=== PATIENT | male | born 1990 | race African-American/Black ===

== ENCOUNTER 2016-11-07 20:40 | Inpatient (IN) ==
[2016-11-07] MEDS ORDERED: MORPHINE 2 MG/1 ML SYRINGE IV STA (22:09)
[2016-11-07] MEDS ORDERED: ONDANSETRON 4 MG/2 ML VIAL IV STA (22:09)
[2016-11-07] MEDS ORDERED: SODIUM CHLORIDE 0.9% 1,000 ML IV STA (22:09)
[2016-11-07] MEDS ORDERED: IBUPROFEN 800 MG TABLET PO STA (22:15)
--- NOTE | 2016-11-07 22:15 | Emergency Department Note ---
Arrival - Arrival Chief Complaint: Upper Respiratory Stated Complaint: sob,fever,cold,n/v ED Nursing Triage Note: c/o GREGORIO, fever, and vomitting and unable to hold anything down with some SOB. no resp distress noted in triage. patient took tylenol at 1900 but threw in back up Mode of Arrival: Wheelchair Time Seen by Provider: 11/07/16 22:09 - History of Present Illness HPI Narrative: The patient presents complaining of abdominal pain, fever, nausea, and vomiting which started yesterday. His nausea vomiting and fever started that he began to have abdominal pain which radiates through to his back. Currently he states the pain is most severe in his back lower and his lumbar region. He denies any diarrhea. He has had no hematemesis or blood in his urine. Family states they tried to give him Tylenol at home but he threw it back up. Allergies/Adverse Reactions: Allergies Allergy/AdvReac Type Severity Reaction Status Date / Time No Known Allergies Allergy Unverified 11/07/16 20:48 Home Medications: Home Medications Medication Instructions Recorded Confirmed Type No Known Home Medications [No 11/07/16 11/07/16 History Known Home Medications] Review of System - Review of System 12 point system: reviewed and no additional remarkable complaints except as stated Medical,Surgical,& Family Hx - Medical History Neurology: No history of: Neurologocal Cancer - Social History Smoking Status: Current every day smoker Frequency of Alcohol Use: Frequently Type of Drug Use: Marijuana Exam Physical Examination: General: Patient is well-developed and well-nourished with mild distress noted. Is currently completely covered in a blanket and shivering. HEENT: The extraocular muscles are intact. Oropharynx is moist. There is no erythema or exudate. The tympanic membranes are shiny bilaterally. Neck: There is no adenopathy. Full range of motion is noted without pain. The trachea is midline. No JVD is present. Lungs: There is normal excursion of the chest with the lungs sounding clear bilaterally. No subcostal retractions are present. There is no point tenderness present. Heart: The heart has a regular rate and rhythm with no gallops or murmurs. Abdomen: The abdomen is tender diffusely with guarding but no definite rebound. Bowel sounds are present.. Back: The back demonstrates a normal appearance with no evidence of trauma. Genitourinary: Not examined. Extremities: The extremities demonstrate no clubbing, cyanosis, or edema. The visualized range of motion is normal. They appear atraumatic. Neuro: Cranial nerves II through XII are checked and intact. There is no focal motor or sensory deficit seen in the extremities. Skin: Skin is warm and dry with no evidence of rash. Vital Signs: Vital Signs Temperature 101.5 F H 11/07/16 22:49 Pulse Rate 93 H 11/07/16 23:15 Respiratory Rate 20 11/07/16 23:15 Blood Pressure 122/70 11/07/16 23:15 O2 Sat by Pulse Oximetry 94 L 11/07/16 23:15 Course - Consultations Consultation #1: Dr. Adal Prince will evaluate and admit the patient. Time: 23:38 Results - Labs CBC & BMP: 11/07/16 22:31 11/07/16 22:31 Lab Results: I have reviewed the patients labs - Diagnostic Findings Procedure: CT Abdomen and Pelvis: image reviewed by me (Appendix normal. Left lower lobe pneumonia.) Disposition Clinical Impression: Left lower lobe pneumonia, Acute nausea vomiting, Fever Case discussed with: patient, patient's family Disposition: Still a Patient Condition: Stable Time of Disposition: 23:39
[2016-11-07] MEDS ORDERED: ONDANSETRON 4 MG/2 ML VIAL ONE (22:26)
[2016-11-07] MEDS ORDERED: IBUPROFEN 800 MG TABLET ONE (22:26)
[2016-11-07] MEDS ORDERED: MORPHINE 2 MG/1 ML SYRINGE ONE (22:26)
[2016-11-07 22:53] LABS: Basophils % 0.2 % (0.0-0.8); Eosinophils % 0.1 % (0.00-10.9); Hematocrit 34.3 VOL% (42.0-52.0); Hemoglobin 12.4 GM/DL (14.0-18.0); Immature Granulocytes % 0.9 %; Immature Granulocytes Absolute 0.16 #; Lymphocytes # 1.2 10*3/uL (1.4-4.0); Lymphocytes % 6.5 % (21.2-54.2); Mean Corpuscular HGB Conc 36.2 GM/DL (32-36); Mean Corpuscular Hemoglobin 32 PG (27-34); Mean Corpuscular Volume 89.3 FL (87-102); Mean Platelet Volume 10.6 FL (9.6-12.0); Monocytes # 0.4 10*3/uL (0.11-0.8); Monocytes % 2.1 % (1.7-12.7); Neutrophils % 90.2 % (38.7-73.9); Platelet Count 205 T/CUMM (130-400); Red Blood Count 3.84 MC/CUMM (3.8-5.5); Red Cell Distribution Width 12.8 % (9.3-17.3); White Blood Count 17.7 T/CUMM (4-12)
[2016-11-07 23:00] LABS: Apearance,Urine Slightly Hazy (Clear); Bacteria,Urine Few /HPF (Few); Bilirubin,Urine Negative (Negative); Blood, Urine Negative (Negative); Glucose,Urine (UA) Negative (Negative); Ketones,Urine 80 mg/dL (Negative); Mucus,Urine Occasional /LPF (Occasional); Nitrite,Urine Negative (Negative); Protein,Urine 30 MG/DL; RBC,Urine 4 /HPF (0-4); Urine Color Yellow (Yellow); Urine Specific Gravity 1.028 (1.001-1.035); Urine Urobilinogen < 2.0 EU/DL (0.2-1.0); WBC,Urine 2 /HPF (0-6)
[2016-11-07 23:07] LABS: Albumin 3.2 G/DL (3.4-5.0); Bilirubin,Total 1.6 MG/DL (0.2-1.0); Calcium 8.4 MG/DL (8.5-10.1); Magnesium 1.5 MG/DL (1.8-2.4); Potassium 3.9 MMOL/L (3.5-5.1); Total Protein 6.5 G/DL (6.4-8.3)
[2016-11-07 23:12] LABS: Lactic Acid 2.5 MMOL/L (0.4-2.0)
[2016-11-07] MEDS ORDERED: MAGNESIUM SULF RIDER 2 GM in PREMIX 1 EACH IV STA (23:20)
[2016-11-07] MEDS ORDERED: LEVOFLOXACIN INJ 750 MG in PREMIX 1 EACH IV STA (23:39)
[2016-11-07] MEDS ORDERED: MAGNESIUM SULF RIDER 50 ML IV ONE (23:53)
[2016-11-08] MEDS ORDERED: LEVOFLOXACIN INJ 150 ML IV ONE (00:27)
[2016-11-08] MEDS ORDERED: BISACODYL 5 MG TABLET PO PRN (01:30)
[2016-11-08] MEDS ORDERED: NICOTINE 21 MG/24 HR PATCH TRANSDERM PRN (01:30)
[2016-11-08] MEDS ORDERED: ACETAMINOPHEN 325 MG TABLET PO PRN (01:30)
[2016-11-08] MEDS ORDERED: ONDANSETRON 4 MG/2 ML VIAL IV PRN (01:30)
[2016-11-08] MEDS ORDERED: PROMETHAZINE 25 MG/1 ML VIAL IM PRN (01:30)
[2016-11-08] MEDS ORDERED: MORPHINE 2 MG/1 ML SYRINGE IV PRN (01:30)
--- NOTE | 2016-11-08 01:34 | Hospitalist History & Physical ---
Assessment and Plan - Time spent with patient Time spent discussing smoking cessation with patient: 3 to 10 minutes (1) Pleurisy Status: Acute Current Visit: Yes (2) Alcohol dependence Status: Acute Current Visit: Yes (3) Smoker Status: Acute Current Visit: Yes (4) Marijuana use Status: Acute Current Visit: Yes (5) Left lower lobe pneumonia Status: Acute Assessment and plan: Plan: Admit for IV antibiotics Obtain blood and sputum cultures Supportive care for pain, fever Scheduled Librium and as needed Ativan for potential alcohol withdrawal Current Visit: Yes History of Present Illness Chief complaint: Coughing, nausea vomiting and fever History of present illness: Mr. Ye is a 26 year old male with no chronic medical problems, who is a smoker of both cigarettes and marijuana daily, drinks at least three 25 ounce beers daily with occasional liquor, presents here with several days of abdominal pain nausea vomiting and left-sided pleuritic chest pain, 5 out of 10 at worst, nonradiating. Worse with deep inspiration, knifelike in nature. He thinks his stomach is upset from drinking "so much beer." His symptoms are constant and severe. He does have previous alcohol withdrawal symptoms including significant tremor. Will be admitted for treatment of pneumonia along with alcohol withdrawal prophylaxis with benzodiazepines, supplemental oxygen and duo nebs. Home Medications Medication Instructions Recorded Confirmed Type No Known Home Medications [No 11/07/16 11/07/16 History Known Home Medications] Allergies Allergy/AdvReac Type Severity Reaction Status Date / Time No Known Allergies Allergy Verified 11/08/16 03:01 Medical,Surgical,& Family Hx - Medical History Cardio: No history of: Hypertension Neurology: No history of: Neurologocal Cancer Endocrine: No history of: Diabetes Mellitus (NIDDM) - Surgical History Additional Surgical History: No prior surgical history - Family History Family History: Reports;: Family Hypertension - Social History Smoking Status: Current every day smoker Have you smoked in the last 12 months: Yes Time spent discussing smoking cessation with patient: 3 to 10 minutes Frequency of Alcohol Use: Frequently (At least three 25 ounce beers daily with occasional liquor) Type of Drug Use: Marijuana (Daily) Marital Status: Unknown Functional capacity: independent ambulation Review of systems: A 12 point review of systems is negative except as specified in the HPI Exam - Constitutional Vitals: Period Temp Pulse Resp BP Sys/Johnson Pulse Ox Last 24 Hr 100.2 F-101.5 F 76-104 18-20 122-134/70-87 94-96 Exam: EXAM: CONSTITUTIONAL: non toxic, NAD HEENT: NC, AT, OP benign, UZIEL, EOMI CV: Tachycardic, regular no m/g/r RESP: Coarse breath sounds left greater than right, rhonchi at the left base, scant expiratory wheezes bilaterally GI: abd soft, NT, ND, +bowel sounds INTEGUMENTARY: no lesions or rash EXTREMITIES: no c/c/e NEURO: no focal deficits PSYCH: Drowsy but easily arousable and answers questions appropriately Results - Labs CBC & BMP: 11/07/16 22:31 11/07/16 22:31 Lab Results: I have reviewed the past 24 hour labs - Diagnostic Findings Procedure: CT Abdomen and Pelvis: image reviewed by me
[2016-11-08] MEDS ORDERED: AZITHROMYCIN INJ 500 MG in SODIUM CHLORIDE 0.9% 250 ML IV SCH (02:00)
[2016-11-08] MEDS ORDERED: LORazepam 2 MG/1 ML VIAL IM PRN (03:07)
[2016-11-08] MEDS: chlordiazePOXIDE 25 MG CAPSULE PO SCH ×4 (03:24→21:00)
[2016-11-08] MEDS: cefTRIAXone 1,000 MG in SODIUM CHLORIDE 0.9% 100 ML IV SCH (03:24)
[2016-11-08 03:30] LABS: Barbiturates Screen,Urine Negative (Negative); Benzodiazepines Screen,Urine Positive (Negative); Cannabinoid Screen,Urine Positive (Negative); Opiate Screen,Urine Positive (Negative); Phencyclidine Screen,Urine Negative (Negative)
[2016-11-08] MEDS: SODIUM CHLORIDE 0.9% 1,000 ML IV SCH ×4 (03:31→16:58)
[2016-11-08 06:25] LABS: Basophils % 0.2 % (0.0-0.8); Eosinophils % 0.2 % (0.00-10.9); Hemoglobin 11.4 GM/DL (14.0-18.0); Immature Granulocytes % 0.2 %; Immature Granulocytes Absolute 0.01 #; Lymphocytes # 1.3 10*3/uL (1.4-4.0); Lymphocytes % 19.2 % (21.2-54.2); Mean Corpuscular HGB Conc 34.5 GM/DL (32-36); Mean Corpuscular Hemoglobin 32 PG (27-34); Mean Corpuscular Volume 92.4 FL (87-102); Mean Platelet Volume 11.4 FL (9.6-12.0); Monocytes # 0.2 10*3/uL (0.11-0.8); Monocytes % 2.6 % (1.7-12.7); Neutrophils # 5.1 10*3/uL (1.4-7.4); Neutrophils % 77.6 % (38.7-73.9); Platelet Count 185 T/CUMM (130-400); Red Blood Count 3.57 MC/CUMM (3.8-5.5); Red Cell Distribution Width 13.1 % (9.3-17.3); White Blood Count 6.5 T/CUMM (4-12)
--- NOTE | 2016-11-08 06:50 | CT Report ---
CT of the abdomen and pelvis with intravenous and oral contrast. 100 cc Omni 350. Axial images were obtained with sagittal and coronal reconstructions. Comparison is made to a previous exam of November 23, 2015. Indication: Right-sided abdominal pain. There is a preliminary report from [facility]. The heart is normal in size. There is no pericardial or pleural effusion. Within the left lower lobe, there is dense, nodular alveolar consolidation. The liver, spleen, adrenal glands, kidneys and pancreas present a normal appearance. The abdominal aorta is of normal caliber. The gastric contour is normal. The loops of small intestine are not dilated. There is no small intestinal wall thickening. The terminal ileum presents a normal appearance. The appendix is only partially seen. No definite inflammatory changes in the right lower quadrant. The colon is not dilated. No evidence of bowel obstruction. Minimal free fluid within the pelvis. The urinary bladder presents a normal appearance. No adenopathy. Numerous phleboliths are seen within the pelvis. No bony abnormality is identified. Impression: 1. Left lower lobe pneumonia. 2. Small amount of free fluid within the central posterior pelvis. 3. The appendix is only partially seen. There are no direct findings of appendicitis, but appendicitis cannot be completely excluded without full visualization of the appendix. Careful clinical correlation recommended. The CT exam was performed using one or more of the following dose reduction techniques: Automated exposure control, adjustment of the mA and/or kV according to patient size, or use of iterative reconstruction technique. PROCEDURE INTERPRETED AT [facility] DEPARTMENT OF RADIOLOGY Final Report Signed by: Dr. Kira Blount
[2016-11-08 06:54] LABS: Band Neutrophils 11 % (0-10); Elliptocytes Few; Hypochromasia 1+; Lymphocytes 6 % (20-55); Nucleated Red Blood Cells 1 (0-5); Platelet Estimate Normal; Segmented Neutrophils 79 % (50-85); Total Cells Counted 100
[2016-11-08 07:03] LABS: Albumin 2.3 G/DL (3.4-5.0); Bilirubin,Total 1.9 MG/DL (0.2-1.0); Calcium 7.5 MG/DL (8.5-10.1); Magnesium 2.1 MG/DL (1.8-2.4); Osmolality,Calculated 274.5 MOS/KG (273-304); Potassium 3.6 MMOL/L (3.5-5.1); Total Protein 4.9 G/DL (6.4-8.3)
[2016-11-08] MEDS: ALBUTEROL/IPRATROPIUM 3 ML NEB RESP TX SCH ×3 (07:27→19:21)
[2016-11-08 08:12] LABS: HIV Antigen/Antibody Result Nonreactive (Nonreactive)
[2016-11-08] MEDS: PANTOPRAZOLE 40 MG TABLET PO SCH (08:44)
[2016-11-08] MEDS: ENOXAPARIN 40 MG/0.4 ML SYRINGE SUBCUT SCH (08:44)
--- NOTE | 2016-11-08 08:58 | XRay Report ---
XR chest 1V portable Indication: SOB Comparison: CT chest dated November 23, 2015 Technique: Single frontal view of the chest Findings: Heart size appears within normal limits. There is opacification of the left mid and lower lung as well as the right infrahilar lung suspicious for pneumonia. Osseous and surrounding soft tissue structures demonstrate no acute abnormality. IMPRESSION: As above. PROCEDURE INTERPRETED AT [facility] DEPARTMENT OF RADIOLOGY Final Report Signed by: Dr Levi Brasher
[2016-11-08] MEDS: VANCOMYCIN INJ 1,000 MG in SODIUM CHLORIDE 0.9% 250 ML IV SCH (17:02)
[2016-11-08] MEDS: AZITHROMYCIN INJ 500 MG in SODIUM CHLORIDE 0.9% 250 ML IV SCH (23:29)
[2016-11-09] MEDS: ALBUTEROL/IPRATROPIUM 3 ML NEB RESP TX SCH ×4 (00:06→19:31)
[2016-11-09] MEDS: VANCOMYCIN INJ 1,000 MG in SODIUM CHLORIDE 0.9% 250 ML IV SCH ×3 (00:56→16:18)
[2016-11-09] MEDS: SODIUM CHLORIDE 0.9% 1,000 ML IV SCH ×3 (00:57→16:47)
[2016-11-09] MEDS: chlordiazePOXIDE 25 MG CAPSULE PO SCH ×4 (03:22→21:13)
[2016-11-09] MEDS: cefTRIAXone 1,000 MG in SODIUM CHLORIDE 0.9% 100 ML IV SCH (03:22)
[2016-11-09 04:12] LABS: Basophils % 0.1 % (0.0-0.8); Eosinophils # 0.1 10*3/uL (0.0-0.87); Eosinophils % 0.4 % (0.00-10.9); Hematocrit 29.2 VOL% (42.0-52.0); Hemoglobin 9.9 GM/DL (14.0-18.0); Immature Granulocytes % 0.5 %; Immature Granulocytes Absolute 0.08 #; Lymphocytes # 2.2 10*3/uL (1.4-4.0); Lymphocytes % 13.8 % (21.2-54.2); Mean Corpuscular HGB Conc 33.9 GM/DL (32-36); Mean Corpuscular Hemoglobin 32 PG (27-34); Mean Corpuscular Volume 93.3 FL (87-102); Mean Platelet Volume 10.8 FL (9.6-12.0); Monocytes # 0.5 10*3/uL (0.11-0.8); Monocytes % 3.3 % (1.7-12.7); Neutrophils # 12.9 10*3/uL (1.4-7.4); Neutrophils % 81.9 % (38.7-73.9); Platelet Count 161 T/CUMM (130-400); Red Blood Count 3.13 MC/CUMM (3.8-5.5); Red Cell Distribution Width 13.1 % (9.3-17.3); White Blood Count 15.8 T/CUMM (4-12)
[2016-11-09 04:43] LABS: Hypochromasia 1+; Platelet Estimate Normal
[2016-11-09 04:53] LABS: Magnesium 2.2 MG/DL (1.8-2.4); Osmolality,Calculated 280.1 MOS/KG (273-304); Potassium 3.7 MMOL/L (3.5-5.1)
[2016-11-09 05:54] LABS: Hepatitis A Ab IgM Quant 0.15 Index; Hepatitis A Ab IgM Result Negative (Negative); Hepatitis B Core IgM Quant 0.19 Index; Hepatitis B Core IgM Result Negative (Negative); Hepatitis B Surface Ag Quant 0.25 Index; Hepatitis B Surface Ag Result Negative (Negative); Hepatitis C Virus Ab Quant 0.15 Index; Hepatitis C Virus Ab Result Negative (Negative)
--- NOTE | 2016-11-09 07:23 | Physician Query Form ---
CLICK EDIT DOCUMENT TO SELECT QUERY ANSWER --> OK --> SIGN PROVIDERS: Make your selection(s) from the choices in EACH section by typing an "x" and enter comments in the comment section. Please use your independent medical judgment in providing your response. This request does not imply that any particular answer is desired or expected. 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 142 lbs and was "notified by nursing that patient has reported a significant amount of weight loss". Based on the above, which following choice most accurately represents the patient's nutritional status? (x ) Malnutrition ( x) mild ( ) moderate ( ) severe ( ) Protein calorie malnutrition ( ) mild ( ) moderate ( ) severe ( ) Emaciation due to malnutrition ( ) Nutritional marasmus ( ) Cachexia ( ) Underweight ( ) No nutritional deficiency ( ) Other, please specify: ( ) Clinically unable to determine Mild Malnutrition (BMI < 18.5, % Normal Body Weight 85-95%) Moderate Malnutrition (BMI < 17, % Normal Body Weight 75-85%) Severe Malnutrition (BMI < 16, % Normal Body Weight < 75%) Source: Maggie COMMENTS: Use of terms such as suspected, likely, or probable (associated with a specific diagnosis that is being evaluated, monitored, or treated as if it exists) are acceptable and can be restated in the discharge summary if not ruled out. MTDD
--- NOTE | 2016-11-09 07:23 | Physician Query Form ---
CLICK EDIT DOCUMENT TO SELECT QUERY ANSWER --> OK --> SIGN Ame Barnes RN, CCDS Certified Clinical Timber Appraiser W) [phone] (f) [phone] [email or web address] PROVIDERS: Make your selection(s) from the choices in EACH section by typing an "x" and enter comments in the comment section. Please use your independent medical judgment in providing your response. This request does not imply that any particular answer is desired or expected. CLINICAL INDICATORS: (Providers should not edit this section) The medical record indicates that the patient was admitted with Pneumonia, WBC of 17.7, 11% bands on the 5th, Lactic Acid of 2.5#, temp up to 101.5 on the 4th , pulse of 104# and the patient was treated with Zithromax/ Ceftriaxone. Please clarify which, if any, of the following is the etiology of the above symptoms and treatment rendered: ( ) Septic Shock (severe sepsis with hypotension) ( ) Severe Sepsis (sepsis with acute organ failure) - Please specify type acute organ failure: ( x) Sepsis due to a localized infection, please specify site: lungs ( ) Sepsis due to a device, implant or graft, please specify: ( ) Localized infection only, without systemic illness, please specify site: ( ) Bacteremia (abnormal lab finding only, does not indicate systemic illness) ( ) Other condition, please specify: ( ) Clinically unable to determine Criteria for Sepsis (SIRS due to an infection) should be based on 2 or more of the following being present: Temperature > 101F or < 96.8F WBC > 12,000 or < 4,000, or > 10% bands Tachycardia HR > 90 beats/minute Tachypnea RR > 20 breaths/minute or PaCO2 > 32mmHg Lactate level > 2.0 mmol/L (>4 is equivalent to severe sepsis) Altered Mental Status Mottling of skin or prolonged capillary refill Non-diabetic hyperglycemia (blood sugar >120 mg/dl) Other evidence of acute organ failure associated with sepsis ( severe sepsis) COMMENTS: Use of terms such as suspected, likely, or probable (associated with a specific diagnosis that is being evaluated, monitored, or treated as if it exists) are acceptable and can be restated in the discharge summary if not ruled out. MTDD
[2016-11-09] MEDS: ENOXAPARIN 40 MG/0.4 ML SYRINGE SUBCUT SCH (08:36)
[2016-11-09] MEDS: PANTOPRAZOLE 40 MG TABLET PO SCH (08:37)
--- NOTE | 2016-11-09 13:27 | Hospitalist Progress Note ---
Assessment and Plan (1) Left lower lobe pneumonia Status: Acute Current Visit: Yes (2) Fever Status: Acute Current Visit: Yes (3) Alcohol dependence Status: Acute Current Visit: Yes Hospitalist: Subjective Interval history: No acute events overnight. Blood culture 1/2 with gram positive cocci. Possibly contaminant. Will repeat blood cultures to make sure. Added vancomycin. Exam - Constitutional Vitals: Period Temp Pulse Resp BP Sys/Johnson Pulse Ox Last 24 Hr 96 F-98.9 F 77-104 18-20 95-103/42-64 93-100 General appearance: under weight - Head Head exam: Present: normal inspection, normocephalic - Eye Eye exam: Present: EOMI Pupils: Present: UZIEL - ENT ENT exam: Present: normal exam - Neck Neck exam: Present: normal inspection - Respiratory Respiratory exam: Present: clear to auscultation bilaterally. Absent: rhonchi, wheezes - Cardiovascular Cardiovascular exam: Present: regular rate and rhythm - GI/Abdominal GI/Abdominal exam: Present: normal bowel sounds, soft. Absent: tenderness, rebound - Extremities Exam Extremities exam: Present: normal inspection - Back Exam Back exam: Present: normal inspection - Neurological Exam Neurological exam: Present: alert, oriented X3 - Psychiatric Psychiatric exam: Present: normal affect, normal mood - Skin Skin exam: Present: warm, intact Results - Labs CBC & BMP: 11/09/16 04:02 11/09/16 04:02
[2016-11-09] MEDS: AZITHROMYCIN INJ 500 MG in SODIUM CHLORIDE 0.9% 250 ML IV SCH (21:14)
[2016-11-10] MEDS: ALBUTEROL/IPRATROPIUM 3 ML NEB RESP TX SCH ×2 (00:01→07:11)
[2016-11-10] MEDS ORDERED: VANCOMYCIN INJ 1,500 MG in SODIUM CHLORIDE 0.9% 500 ML IV ONE (01:00)
[2016-11-10] MEDS: cefTRIAXone 1,000 MG in SODIUM CHLORIDE 0.9% 100 ML IV SCH (02:23)
[2016-11-10] MEDS: chlordiazePOXIDE 25 MG CAPSULE PO SCH ×3 (02:23→09:16)
[2016-11-10 06:55] LABS: Basophils % 0.1 % (0.0-0.8); Eosinophils # 0.1 10*3/uL (0.0-0.87); Eosinophils % 0.7 % (0.00-10.9); Hematocrit 26.9 VOL% (42.0-52.0); Hemoglobin 9.1 GM/DL (14.0-18.0); Immature Granulocytes % 0.7 %; Immature Granulocytes Absolute 0.11 #; Lymphocytes # 1.6 10*3/uL (1.4-4.0); Lymphocytes % 9.7 % (21.2-54.2); Mean Corpuscular HGB Conc 33.8 GM/DL (32-36); Mean Corpuscular Hemoglobin 32 PG (27-34); Mean Corpuscular Volume 95.1 FL (87-102); Mean Platelet Volume 10.9 FL (9.6-12.0); Monocytes # 0.7 10*3/uL (0.11-0.8); Monocytes % 4.3 % (1.7-12.7); Neutrophils # 14.3 10*3/uL (1.4-7.4); Neutrophils % 84.5 % (38.7-73.9); Platelet Count 169 T/CUMM (130-400); Red Blood Count 2.83 MC/CUMM (3.8-5.5); Red Cell Distribution Width 13.5 % (9.3-17.3); White Blood Count 16.9 T/CUMM (4-12)
[2016-11-10 07:15] LABS: Calcium 7.6 MG/DL (8.5-10.1); Magnesium 1.8 MG/DL (1.8-2.4); Osmolality,Calculated 281.8 MOS/KG (273-304); Potassium 3.4 MMOL/L (3.5-5.1)
[2016-11-10 07:17] LABS: Band Neutrophils 3 % (0-10); Hypochromasia 1+; Lymphocytes 7 % (20-55); Platelet Estimate Normal; Segmented Neutrophils 88 % (50-85); Total Cells Counted 100
[2016-11-10] MEDS: SODIUM CHLORIDE 0.9% 1,000 ML IV SCH (08:16)
[2016-11-10 08:22] VITALS: BP 112/61
[2016-11-10] MEDS: VANCOMYCIN INJ 1,000 MG in SODIUM CHLORIDE 0.9% 250 ML IV SCH ×2 (09:15→09:54)
[2016-11-10] MEDS: PANTOPRAZOLE 40 MG TABLET PO SCH (09:16)
[2016-11-10] MEDS: ENOXAPARIN 40 MG/0.4 ML SYRINGE SUBCUT SCH (09:16)
--- NOTE | 2016-11-10 09:17 | Discharge Summary ---
Hospital Course - Hospital Course Hospital Course: Mr. Ye is a 26 year old male with no chronic medical problems, who is a smoker of both cigarettes and marijuana daily, drinks at least three 25 ounce beers daily with occasional liquor, presented here with several days of abdominal pain, nausea, vomiting and left-sided pleuritic chest pain, 5 out of 10 at worst, nonradiating. Worse with deep inspiration, knifelike in nature. He thought his stomach was upset from drinking "so much beer." His symptoms were constant and severe. He does have previous alcohol withdrawal symptoms including significant tremor. Patient was admitted to the hospitalist service for treatment of pneumonia along with alcohol withdrawal prophylaxis with benzodiazepines, supplemental oxygen and duo nebs. He was started on rocephin and azithromycin. Blood cultures on admission 1 of 2 grew gram positive cocci. Repeat blood cultures are no growth to date. Patient has responded well to treatment. He has experienced an increase in his appetite, able to walk around the hospital. He has reached maximum benefit of inpatient stay and will be discharged home. He will complete his antibiotic course with amoxicillin and azithromycin. Long discussions with patient throughout admission about alcohol and smoking cessation. - Time spent with patient Time with patient DS: Less than 30 minutes Diagnosis - Discharge Diagnosis (1) Left lower lobe pneumonia Status: Resolved (2) Fever Status: Resolved (3) Alcohol dependence Status: Chronic Specialty Discharge - Follow Up or Referrals Discharge Plan - Discharge Data Condition at Discharge: Stable Discharge Diet: advance to your usual diet Activity: resume usual activities as tolerated Hygiene: no restrictions Weight Bearing at Discharge: full weight bearing Driving: no restrictions Contact your physician if you experience:: fever over 101, Shortness of breath - Discharge Medications New Amoxicillin 500 mg PO TID #15 tablet Azithromycin Tab [Zithromax Tab] 500 mg PO DAILY #5 tablet - Follow Up or Referral - Forms/Instructions Instructions: How to Stop Smoking (DC), Community-acquired Pneumonia (DC), Cigarette Smoking and Your Health, Senior Informatica Developer (GEN) Exam - Constitutional Vitals: Period Temp Pulse Resp BP Sys/Johnson Pulse Ox Last 24 Hr 96 F-98.4 F 73-114 18-20 95-128/46-67 96-100 General appearance: under weight - Head Head exam: Present: normocephalic, atraumatic - ENT ENT exam: Present: normal exam - Neck Neck exam: Present: normal inspection - Respiratory Respiratory exam: Present: clear to auscultation bilaterally. Absent: rhonchi, wheezes - Cardiovascular Cardiovascular exam: Present: regular rate and rhythm - GI/Abdominal GI/Abdominal exam: Present: normal bowel sounds, soft. Absent: tenderness, rebound - Extremities Exam Extremities exam: Present: normal inspection - Back Exam Back exam: Present: normal inspection - Neurological Exam Neurological exam: Present: alert, oriented X3 - Psychiatric Psychiatric exam: Present: normal affect, normal mood - Skin Skin exam: Present: warm, intact Discharge Results Procedures and tests throughout hospitalization: Pending Orders 11/08/16 07:55 Sputum Culture and Gram Stain Stat 11/09/16 04:02 Blood Culture IN AM Labs on day of discharge: Labs from last 24 hours 11/10/16 11/10/16 11/09/16 06:03 06:03 16:30 WBC 16.9 H RBC 2.83 L Hgb 9.1 L Hct 26.9 L MCV 95.1 MCH 32 MCHC 33.8 RDW 13.5 Plt Count 169 MPV 10.9 Neut % (Auto) 84.5 H Lymph % (Auto) 9.7 L Trimble % (Auto) 4.3 Eos % (Auto) 0.7 Baso % (Auto) 0.1 Neut # (Auto) 14.3 H Lymph # (Auto) 1.6 [place]ble # (Auto) 0.7 Eos # (Auto) 0.1 Baso # (Auto) 0.0 Total Counted 100 Immature Gran % 0.7 Nucleated RBC % 0.0 Immature Gran # 0.11 Segmented Neutrophils 88 H Band Neutrophils 3 Lymphocytes 7 L Monocytes 2 Nucleated RBCs # 0.00 Platelet Estimate Normal Hypochromasia 1+ Morphology Comment Sodium 144 Potassium 3.4 L Chloride 110 H Carbon Dioxide 26 Anion Gap 11.4 BUN 5 L Creatinine 0.70 GFR Calculation 162 BUN/Creatinine Ratio 7.00 Glucose 81 Calculated Osmolality 281.8 Calcium 7.6 L Magnesium 1.8 Vancomycin Trough 9.1 L Preliminary micro results at discharge 11/09/16 10:26 Urine Culture - Preliminary Urine,Voided No Growth at 24 hours. 11/08/16 07:55 Sputum Culture - Preliminary Sputum Yeast 11/09/16 04:02 Blood Culture - Preliminary Blood No growth at 1 day 11/09/16 04:02 Blood Culture - Preliminary Blood No growth at 1 day DS: Provider Date of admission: 11/08/16 01:30 Primary care physician: . No PCP Attending physician on admission: Mauro Faustin MD Consults: 11/08/16 02:56 Consult to Dietitian [CONS] Routine Reason for Dietitian: Dietary Consult 11/08/16 16:13 Consult to Pharmacy [CONS] Routine Reason for Pharmacy Consult: Dose/Manage Vancomycin Discharging clinician: Mauro Faustin MD
[2016-11-10] MEDS ORDERED: AZITHROMYCIN 250 MG TABLET PO SCH (21:00)
== END 2016-11-10 10:09 | disposition home or self-care (01) | DRG 871 ==
LOC: N.ED 20:40 → N.EDINP 11-08 01:30 → N.5E 11-08 02:24
PROVIDERS: ADMIT Internal Medicine; ATTEND Internal Medicine